=== PATIENT | male | born 1945 | race Caucasian/White ===

== ENCOUNTER → 2017-01-30 | Outpatient (CLI) | payer MEDICARE, OTHER ==
[~2017-01-30] MED LIST: AMIODARONE200 MG PO; ASPIRIN325 MG PO; ASPIRIN81 M1; BACTROBAN OINT22 GM NAS; CARVEDILOL25 MG; COREG25 MG PO; COUMADIN PO; COUMADIN3 MG PO; COUMADIN4 MG PO; DILTIAZEM240 MG; FISH OIL 10001000 MG; FUROSEMIDE20 MG PO; GEMFIBROZIL600 MG; K-DUR 20MEQ20 MEQ PO; KLOR-CON M2020 MEQ; LASIX40 MG PO; METFORMIN1000 MG; METOCLOPRAMIDE5 MG PO; Oxycodone/Apap1 TA1; PRAVACHOL40 MG PO; PRILOSEC; PRILOSEC20 M1 PO; PRINIVIL5 MG PO; SAW PALMETTO450 MG; SYNTHROID,LEVO50 MCG PO; ZAROXOLYN2.5 MG PO; ZETIA10 MG PO
[2017-01-30 10:07] LABS: BASO % 0.5 % (0.0-1.0); HEMATOCRIT 40.1 % (42.0-52.0); HEMOGLOBIN 12.2 g/dl (14.0-18.0); LYMPH # 0.7 10*3/uL (1.3-4.4); LYMPH % 17.3 % (27.0-41.0); MEAN CELL VOLUME 85.1 fl (80.0-94.0); MEAN CORPUSCULAR HGB 25.9 pg (27.0-31.0); MEAN CORPUSCULAR HGB CONC 30.4 g/dl (33.0-37.0); MEAN PLATELET VOLUME 9.9 fl (9.6-12.3); MONO # 0.3 10*3/uL (0.1-1.0); MONO % 6.9 % (3.0-9.0); NEUT % 74.1 % (47.0-73.0); PLATELET COUNT AUTOMATED 121 10*3/uL (130-400); RED BLOOD COUNT 4.71 10*6/uL (4.50-5.90); RED CELL DISTRI WIDTH 16.8 % (0-14.5)
[2017-01-30 10:30] LABS: ALBUMIN 2.6 gm/dl (3.1-4.5); MAGNESIUM 2.1 mg/dL (1.5-2.1); PHOSPHOROUS 3.2 mg/dL (2.5-4.9); POTASSIUM 3.9 mmol/L (3.5-5.1)
[2017-01-30 11:10] LABS: VITAMIN D, 25-HYDROXY 38.2 ng/mL (30-100)
[2017-01-30 14:43] LABS: BILIRUBIN NEGATIVE (NEGATIVE); BLOOD NEGATIVE (NEGATIVE); CLARITY SL CLOUDY (CLEAR); COLOR YELLOW (YELLOW); GLUCOSE NEGATIVE (NEGATIVE); KETONE NEGATIVE (NEGATIVE); LEUKO ESTERASE NEGATIVE (NEGATIVE); NITRITE NEGATIVE (NEGATIVE); PH 5.5 (5.0-9.0); PROTEIN NEGATIVE (NEGATIVE)
[2017-01-30 14:51] LABS: RBC 0-2 rbc/hpf (0-2); URINE TP/CRE RATIO 0.1 (<0.21); WBC 0-2 wbc/hpf (0-5)
[2017-01-30 14:52] LABS: BACTERIA 1+
== END | disposition home or self-care (01) ==
LOC: LAB 08:49 → CARD 09:00
PROVIDERS: Internal Medicine Interventional Cardiology; Internal Medicine Nephrology
DX: I13.0 Hypertensive heart and chronic kidney disease with heart failure and stage 1 through stage 4 chronic kidney disease, or unspecified chronic kidney disease (principal); I50.43 Acute on chronic combined systolic (congestive) and diastolic (congestive) heart failure; N18.3 Chronic kidney disease, stage 3 (moderate); I48.2 Chronic atrial fibrillation; I44.7 Left bundle-branch block, unspecified; E78.2 Mixed hyperlipidemia; R01.1 Cardiac murmur, unspecified; E55.9 Vitamin D deficiency, unspecified; I37.1 Nonrheumatic pulmonary valve insufficiency; I08.1 Rheumatic disorders of both mitral and tricuspid valves; Z95.810 Presence of automatic (implantable) cardiac defibrillator; Z79.01 Long term (current) use of anticoagulants

== ENCOUNTER → 2017-03-04 | Outpatient (CLI) | payer MEDICARE, OTHER ==
[2017-03-04 13:50] LABS: ALBUMIN 2.9 gm/dl (3.1-4.5); PHOSPHOROUS 2.8 mg/dL (2.5-4.9)
== END | disposition home or self-care (01) ==
LOC: LAB 13:04
PROVIDERS: Internal Medicine Nephrology
DX: N18.3 Chronic kidney disease, stage 3 (moderate) (principal)

== ENCOUNTER → 2017-05-28 | Outpatient (CLI) | payer MEDICARE, OTHER ==
[2017-05-28 12:20] LABS: BASO % 0.5 % (0.0-1.0); EOS # 0.1 10*3/uL (0.0-0.4); EOS % 1.6 % (1.0-4.0); HEMATOCRIT 40.1 % (42.0-52.0); HEMOGLOBIN 12.6 g/dl (14.0-18.0); LYMPH # 0.7 10*3/uL (1.3-4.4); LYMPH % 18.4 % (27.0-41.0); MEAN CELL VOLUME 86.1 fl (80.0-94.0); MEAN CORPUSCULAR HGB CONC 31.4 g/dl (33.0-37.0); MEAN PLATELET VOLUME 10.9 fl (9.6-12.3); MONO # 0.3 10*3/uL (0.1-1.0); NEUT # 2.6 10*3/uL (2.3-7.9); PLATELET COUNT AUTOMATED 113 10*3/uL (130-400); RED BLOOD COUNT 4.66 10*6/uL (4.50-5.90); RED CELL DISTRI WIDTH 16.9 % (0-14.5); WHITE BLOOD COUNT 3.6 10*3/uL (4.8-10.8)
[2017-05-28 12:42] LABS: ALBUMIN 2.9 gm/dl (3.1-4.5)
[2017-05-28 12:52] LABS: CREATININE 2.13 mg/dL (0.70-1.30); THYROID STIM HORMONE (HS) 2.49 uIU/ml (0.358-4.75); TOTAL PROTEIN 6.3 gm/dL (6.4-8.2)
[2017-05-28 13:30] LABS: FERRITIN 29.1 ng/mL (22.0-322.0); VITAMIN D, 25-HYDROXY 30.2 ng/mL (30-100)
[2017-05-28 14:31] LABS: BILIRUBIN NEGATIVE (NEGATIVE); BLOOD NEGATIVE (NEGATIVE); CLARITY SL CLOUDY (CLEAR); COLOR YELLOW (YELLOW); GLUCOSE NEGATIVE (NEGATIVE); KETONE NEGATIVE (NEGATIVE); LEUKO ESTERASE NEGATIVE (NEGATIVE); NITRITE NEGATIVE (NEGATIVE); PH 5.5 (5.0-9.0); SPECIFIC GRAVITY 1.015 (1.005-1.030); UROBILINOGEN 0.2 E.U./dl (0.2-1.0)
[2017-05-28 14:47] LABS: BACTERIA 3+
[2017-05-28 14:48] LABS: YEAST TRACE
== END | disposition home or self-care (01) ==
LOC: LAB 11:52
PROVIDERS: Family Medicine
DX: E55.9 Vitamin D deficiency, unspecified (principal); R53.83 Other fatigue; R79.89 Other specified abnormal findings of blood chemistry; Z79.899 Other long term (current) drug therapy

== ENCOUNTER → 2017-08-28 | Outpatient (CLI) | payer MEDICARE, OTHER ==
[2017-08-28 13:00] LABS: BASO % 0.5 % (0.0-1.0); EOS # 0.1 10*3/uL (0.0-0.4); HEMATOCRIT 37.6 % (42.0-52.0); HEMOGLOBIN 11.6 g/dl (14.0-18.0); LYMPH # 0.6 10*3/uL (1.3-4.4); LYMPH % 13.9 % (27.0-41.0); MEAN CORPUSCULAR HGB 26.5 pg (27.0-31.0); MEAN CORPUSCULAR HGB CONC 30.9 g/dl (33.0-37.0); MEAN PLATELET VOLUME 10.3 fl (9.6-12.3); MONO # 0.3 10*3/uL (0.1-1.0); MONO % 7.1 % (3.0-9.0); NEUT % 76.2 % (47.0-73.0); PLATELET COUNT AUTOMATED 113 10*3/uL (130-400); RED BLOOD COUNT 4.37 10*6/uL (4.50-5.90); RED CELL DISTRI WIDTH 16.8 % (0-14.5)
[2017-08-28 13:17] LABS: ALBUMIN 2.8 gm/dl (3.1-4.5); CREATININE 2.03 mg/dL (0.70-1.30); PHOSPHOROUS 3.5 mg/dL (2.5-4.9); POTASSIUM 4.2 mmol/L (3.5-5.1)
[2017-08-28 14:18] LABS: VITAMIN D, 25-HYDROXY 21.7 ng/mL (30-100)
[2017-08-28 14:19] LABS: PTH INTACT 159.4 pg/mL (14.0-72.0)
[2017-08-28 15:05] LABS: BILIRUBIN NEGATIVE (NEGATIVE); BLOOD 1+ (NEGATIVE); CLARITY CLEAR (CLEAR); COLOR YELLOW (YELLOW); GLUCOSE NEGATIVE (NEGATIVE); KETONE NEGATIVE (NEGATIVE); LEUKO ESTERASE NEGATIVE (NEGATIVE); NITRITE NEGATIVE (NEGATIVE); UROBILINOGEN 0.2 E.U./dl (0.2-1.0)
[2017-08-28 15:13] LABS: HYALINE CAST 0-2
[2017-08-28 15:14] LABS: BACTERIA TRACE; URINE CREATININE RANDOM 30.8 mg/dL; WBC 0-2 wbc/hpf (0-5)
== END | disposition home or self-care (01) ==
LOC: LAB 12:19
PROVIDERS: Internal Medicine Nephrology
DX: N18.3 Chronic kidney disease, stage 3 (moderate) (principal); N25.81 Secondary hyperparathyroidism of renal origin; E55.9 Vitamin D deficiency, unspecified

== ENCOUNTER 2017-10-20 12:00 | Inpatient (IN) | payer MEDICARE, OTHER ==
[~2017-10-20] VITALS: Ht 185.4 cm; Wt 139.5 kg
--- NOTE | ~2017-10-20 | CON ---
[place], [place] REPORT OF CONSULTATION NAME: TORO MUNIZ [facility] #: [id number] UNIT #: [id number] ROOM: 519 DOCTOR: NIDA YI MD BIRTHDATE: [birth year] DOS: 10/21/2017 REASON FOR CONSULTATION: The patient was seen today, 10/21/2017 at his bedside for evaluation of peripheral edema and a history of dilated cardiomyopathy. CHIEF COMPLAINT: Leg swelling and weeping. HISTORY OF PRESENT ILLNESS: The patient is a 72-year-old man who has a long history of nonischemic cardiomyopathy. He has been followed by [facility] out of [facility] and specifically sees Dr. Perez twice a year for his heart failure. Review of available records indicates that he has had catheterization in the past, the most recent one I have records on is from March 2008, at which time, he was felt to have minimal coronary artery disease with an ejection fraction of 45%. He was managed medically. He also has a history of recurrent ventricular tachycardia, for which an ICD was placed. He did have ventricular tachycardia storm with an ICD discharge in 2010. He was placed on amiodarone, but this was subsequently stopped. He denies any discharge from his ICD or palpitations recently. He has had episodes of peripheral edema. He states that he did have cataracts removed early in September. After that he sat with his legs down and the legs became much more swollen. He did develop blisters which broke and his legs developed significant erythema and drainage. He was directed to come to the hospital and has been admitted with heart failure and cellulitis. PAST MEDICAL HISTORY: Includes 1. Permanent atrial fibrillation. 2. Non-insulin dependent diabetes mellitus. 3. Chronic renal insufficiency. 4. Venous stasis ulcerations. 5. Bilateral lower extremity edema with blisters and oozing. 6. History of nonischemic cardiomyopathy. Catheterization in March 2008 showed minimal coronary artery disease with an ejection fraction of 45%. The patient has been treated medically. 7. Recurrent ventricular tachycardia, prompting ICD placement. The device did discharge in 2010. The patient was placed on amiodarone and maintained on amiodarone for a few years before it was stopped. 8. History of rectal cancer, treated with chemotherapy and radiation therapy. MEDICATIONS: Prior to admission included aspirin 325 mg per day, carvedilol 25 mg b.i.d., vitamin D 50,000 units weekly, furosemide 40 mg daily, levothyroxine 50 mcg daily, metoclopramide 5 mg b.i.d., omeprazole 20 mg daily, potassium 20 mEq daily, pravastatin 40 mg at bedtime, warfarin 5 mg alternating with 5.5 mg daily to maintain an INR between 2 and 3. ALLERGIES: The patient lists no known drug allergies. FAMILY HISTORY: The patient's mother of heart disease. REVIEW OF SYSTEMS: The patient denies diplopia or loss of vision. He denies [place], [place] REPORT OF CONSULTATION NAME: TORO MUNIZ UNIT #: [id number] ROOM: [facility] DOCTOR: NIDA YI MD BIRTHDATE: [birth year] lightheadedness or syncope. He does have dyspnea with minor exertion. He denies any recent weight change, but he does note that his abdomen is getting more swollen. He denies nausea or vomiting. He does have diarrhea. He denies fevers, chills or sweats. He is not sure if he might have gained weight. He denies any new skin rashes except for the ulcerations on his legs. He denies blood in his stools or urine. The remainder of the review of systems is negative except as noted above. SOCIAL HISTORY: The patient does not smoke or consume alcohol at this time. He was a pipe smoker in the past. PHYSICAL EXAMINATION: GENERAL: The patient is an obese white male who is awake, alert and oriented. VITAL SIGNS: Pulse is 100 and irregularly irregular, blood pressure is 104/60. He has a temperature of 99.4. He weighs 139.5 kilograms with a body mass index of 40.6. HEENT: Normocephalic, atraumatic. Extraocular muscles are intact. Sclerae are clear. Pupils are equal, round and react to light. The oral mucosa is moist. Tongue is midline. NECK: Supple. He does have jugular distention skilled nursing up the neck when sitting in a 45 degree angle. He does have hepatojugular reflux. Carotids are full without bruits. There are no neck or supraclavicular masses and no thyromegaly. RESPIRATIONS: Unlabored at rest. He does have decreased breath sounds with dullness at the bases. He has mild per presacral edema. HEART: Has an irregularly irregular rhythm. No murmurs or gallops are present. The PMI could not be felt. He has no precordial heave, lift or thrill. ABDOMEN: Obese and firm. I could not tell if there was a fluid wave. Bowel sounds are active. There is no obvious tenderness. EXTREMITIES: Do show 3-4+ edema to the knees. He does have multiple ulcerations on his legs bilaterally with evidence of cellulitis in and around the ulcerations. LABORATORY DATA: I reviewed the chest x-ray, which showed cardiomegaly with pulmonary vascular congestion. An AICD is in place. Hemoglobin is 11.1, hematocrit 34.6, there are 9900 white cells and 149,000 platelets present. Sodium is 138, potassium 3.3, chloride 106, CO2 of 20, BUN 29, creatinine 2.22. IMPRESSION: 1. Acute exacerbation of chronic combined systolic and diastolic heart failure. 2. Massive fluid overload. The patient does have neck vein distention, possible ascites, pleural effusions and lower extremity edema. 3. History of nonischemic cardiomyopathy. 4. Permanent atrial fibrillation. 5. Non-insulin dependent diabetes mellitus. 6. Chronic renal insufficiency. 7. History of recurrent ventricular tachycardia. The patient does have an ICD in place without any recent discharge. [place], [place] REPORT OF CONSULTATION NAME: TORO MUNIZ UNIT #: [id number] ROOM: [facility] DOCTOR: NIDA YI MD BIRTHDATE: [birth year] PLAN: The patient is markedly fluid overloaded. This will need to be treated and I did therefore switch him from p.o. to IV furosemide. 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 I will be getting an echocardiogram to reassess left ventricular function, but I think at this point diuretics are the most appropriate therapy. I did add nitrates to his regimen to act as an unloading therapy. We will continue to observe the patient as he diureses. Further recommendations will follow his echo review. I thank the hospitalist physicians for asking our advice regarding the patient's care. NIDA YI MD CM:CONSTR:REPORT OF CONSULTATION 1505 10/21/17 2130 interface
[~2017-10-20 12:00] MED LIST changes: -K-DUR 20MEQ20 MEQ PO; +POTASSIUM CHLO20 MEQ PO
[2017-10-20 12:17] VITALS: BP 100/58
[2017-10-20 12:44] VITALS: BP 100/53
[2017-10-20 13:27] LABS: BASO % 0.2 % (0.0-1.0); EOS % 0.2 % (1.0-4.0); HEMATOCRIT 38.1 % (42.0-52.0); HEMOGLOBIN 11.6 g/dl (14.0-18.0); LYMPH # 0.6 10*3/uL (1.3-4.4); LYMPH % 5.3 % (27.0-41.0); MEAN CELL VOLUME 84.9 fl (80.0-94.0); MEAN CORPUSCULAR HGB 25.8 pg (27.0-31.0); MEAN CORPUSCULAR HGB CONC 30.4 g/dl (33.0-37.0); MEAN PLATELET VOLUME 10.5 fl (9.6-12.3); MONO # 0.6 10*3/uL (0.1-1.0); MONO % 5.6 % (3.0-9.0); NEUT # 9.8 10*3/uL (2.3-7.9); NEUT % 88.2 % (47.0-73.0); PLATELET COUNT AUTOMATED 148 10*3/uL (130-400); RED BLOOD COUNT 4.49 10*6/uL (4.50-5.90); RED CELL DISTRI WIDTH 16.5 % (0-14.5); WHITE BLOOD COUNT 11.1 10*3/uL (4.8-10.8)
[2017-10-20 13:31] VITALS: BP 103/50
[2017-10-20 13:42] LABS: ALBUMIN 2.2 gm/dl (3.1-4.5); CREATININE 2.37 mg/dL (0.70-1.30); POTASSIUM 3.7 mmol/L (3.5-5.1); TOTAL PROTEIN 5.7 gm/dL (6.4-8.2)
[2017-10-20] MEDS ORDERED: COUMADIN5 M2 PO (13:50)
[2017-10-20 14:54] VITALS: BP 96/50
[2017-10-20 16:01] VITALS: BP 118/69
[2017-10-20] MEDS ORDERED: COUMADIN0.5 MG PO (16:41)
[2017-10-20] MEDS ORDERED: VITAMIN D50000 UNIT PO (16:43)
[2017-10-20 20:54] LABS: BILIRUBIN NEGATIVE (NEGATIVE); BLOOD TRACE-INTACT (NEGATIVE); CLARITY CLEAR (CLEAR); COLOR YELLOW (YELLOW); GLUCOSE NEGATIVE (NEGATIVE); KETONE NEGATIVE (NEGATIVE); LEUKO ESTERASE NEGATIVE (NEGATIVE); NITRITE NEGATIVE (NEGATIVE); UROBILINOGEN 0.2 E.U./dl (0.2-1.0)
[2017-10-20 21:00] VITALS: BP 112/70
[2017-10-20 21:00] LABS: BACTERIA 2+; RBC 0-2 rbc/hpf (0-2)
[2017-10-21 01:12] VITALS: BP 102/50
[2017-10-21 06:55] LABS: BASO % 0.2 % (0.0-1.0); EOS % 0.4 % (1.0-4.0); HEMATOCRIT 34.6 % (42.0-52.0); HEMOGLOBIN 11.1 g/dl (14.0-18.0); LYMPH # 0.6 10*3/uL (1.3-4.4); LYMPH % 5.7 % (27.0-41.0); MEAN CELL VOLUME 83.4 fl (80.0-94.0); MEAN CORPUSCULAR HGB 26.7 pg (27.0-31.0); MEAN CORPUSCULAR HGB CONC 32.1 g/dl (33.0-37.0); MONO # 0.5 10*3/uL (0.1-1.0); MONO % 5.5 % (3.0-9.0); NEUT # 8.6 10*3/uL (2.3-7.9); NEUT % 87.5 % (47.0-73.0); PLATELET COUNT AUTOMATED 149 10*3/uL (130-400); RED BLOOD COUNT 4.15 10*6/uL (4.50-5.90); RED CELL DISTRI WIDTH 16.5 % (0-14.5); WHITE BLOOD COUNT 9.9 10*3/uL (4.8-10.8)
[2017-10-21 07:07] LABS: INTERNATIONAL NORM RATIO 4.7 (2.0-3.5)
[2017-10-21 07:23] LABS: ALBUMIN 2.1 gm/dl (3.1-4.5); FREE T4 1.52 ng/dl (0.76-1.46); POTASSIUM 3.3 mmol/L (3.5-5.1); TOTAL PROTEIN 5.4 gm/dL (6.4-8.2)
[2017-10-21 07:28] LABS: CREATININE 2.22 mg/dL (0.70-1.30); PHOSPHOROUS 2.5 mg/dL (2.5-4.9); THYROID STIM HORMONE (HS) 1.6 uIU/ml (0.358-4.75)
[2017-10-21 08:00] VITALS: BP 104/60
[2017-10-21 09:58] LABS: VITAMIN D, 25-HYDROXY 24.8 ng/mL (30-100)
[2017-10-21 15:33] LABS: HEMATOCRIT 39.5 % (42.0-52.0); HEMOGLOBIN 12.4 g/dl (14.0-18.0); MEAN CELL VOLUME 83.7 fl (80.0-94.0); MEAN CORPUSCULAR HGB 26.3 pg (27.0-31.0); MEAN CORPUSCULAR HGB CONC 31.4 g/dl (33.0-37.0); PLATELET COUNT AUTOMATED 159 10*3/uL (130-400); RED BLOOD COUNT 4.72 10*6/uL (4.50-5.90); RED CELL DISTRI WIDTH 16.5 % (0-14.5); WHITE BLOOD COUNT 13.1 10*3/uL (4.8-10.8)
[2017-10-21 16:00] VITALS: BP 116/54
[2017-10-21 16:19] LABS: BASOPHILS 1 % (0-1); BURR CELLS FEW; TOTAL CELLS COUNTED 100 #CELLS
[2017-10-21 16:20] LABS: PLATELET SUFFICIENCY NORMAL (NORMAL); POLYCHROMASIA SLIGHT
[2017-10-21 20:00] VITALS: BP 97/60
[2017-10-21 22:13] LABS: POTASSIUM 3.6 mmol/L (3.5-5.1)
[2017-10-21 22:18] LABS: PHOSPHOROUS 2.9 mg/dL (2.5-4.9)
[2017-10-22 01:04] VITALS: BP 120/58
[2017-10-22 06:39] LABS: BASO % 0.1 % (0.0-1.0); EOS % 0.1 % (1.0-4.0); HEMATOCRIT 36.8 % (42.0-52.0); HEMOGLOBIN 11.7 g/dl (14.0-18.0); LYMPH # 0.7 10*3/uL (1.3-4.4); LYMPH % 4.6 % (27.0-41.0); MEAN CELL VOLUME 82.1 fl (80.0-94.0); MEAN CORPUSCULAR HGB 26.1 pg (27.0-31.0); MEAN CORPUSCULAR HGB CONC 31.8 g/dl (33.0-37.0); MEAN PLATELET VOLUME 10.4 fl (9.6-12.3); MONO # 0.7 10*3/uL (0.1-1.0); MONO % 5.1 % (3.0-9.0); NEUT # 12.8 10*3/uL (2.3-7.9); NEUT % 89.4 % (47.0-73.0); PLATELET COUNT AUTOMATED 170 10*3/uL (130-400); RED BLOOD COUNT 4.48 10*6/uL (4.50-5.90); RED CELL DISTRI WIDTH 16.7 % (0-14.5); WHITE BLOOD COUNT 14.3 10*3/uL (4.8-10.8)
[2017-10-22 06:58] LABS: ALBUMIN 1.9 gm/dl (3.1-4.5); CREATININE 2.76 mg/dL (0.70-1.30); PHOSPHOROUS 2.9 mg/dL (2.5-4.9); POTASSIUM 3.6 mmol/L (3.5-5.1)
[2017-10-22 06:59] LABS: TOTAL PROTEIN 5.3 gm/dL (6.4-8.2)
[2017-10-22 08:00] VITALS: BP 91/54
[2017-10-22 12:00] VITALS: BP 76/49
[2017-10-22 20:00] VITALS: BP 94/57
[2017-10-23] VITALS: BP 78/58
[2017-10-23 07:18] VITALS: BP 81/44
[2017-10-23 08:02] LABS: CREATININE 4.36 mg/dL (0.70-1.30); INTERNATIONAL NORM RATIO 3.2 (2.0-3.5); PHOSPHOROUS 4.2 mg/dL (2.5-4.9); POTASSIUM 4.3 mmol/L (3.5-5.1)
[2017-10-23 12:05] VITALS: BP 76/56
[2017-10-23 16:10] VITALS: BP 82/56
[2017-10-23 20:00] VITALS: BP 71/51
[2017-10-24] VITALS: BP 89/65
[2017-10-24 06:44] LABS: ALBUMIN 2.3 gm/dl (3.1-4.5); CREATININE 5.92 mg/dL (0.70-1.30); PHOSPHOROUS 5.6 mg/dL (2.5-4.9); POTASSIUM 5.1 mmol/L (3.5-5.1)
[2017-10-24 07:55] VITALS: BP 89/65
[2017-10-24 11:56] VITALS: BP 56/34
== END 2017-10-24 13:58 | disposition expired | DRG 291 ==
LOC: ED 12:00 → EDHOLD 15:12 → 5E 15:12
PROVIDERS: Emergency Medicine; Hospitalist; Internal Medicine; Internal Medicine Nephrology; Registered Nurse
DX: I13.0 Hypertensive heart and chronic kidney disease with heart failure and stage 1 through stage 4 chronic kidney disease, or unspecified chronic kidney disease (principal); I50.23 Acute on chronic systolic (congestive) heart failure; D68.69 Other thrombophilia; E11.42 Type 2 diabetes mellitus with diabetic polyneuropathy; E11.22 Type 2 diabetes mellitus with diabetic chronic kidney disease; E11.51 Type 2 diabetes mellitus with diabetic peripheral angiopathy without gangrene; N18.4 Chronic kidney disease, stage 4 (severe); L03.115 Cellulitis of right lower limb; L03.116 Cellulitis of left lower limb; Z68.41 Body mass index [BMI] 40.0-44.9, adult; L97.829 Non-pressure chronic ulcer of other part of left lower leg with unspecified severity; L97.819 Non-pressure chronic ulcer of other part of right lower leg with unspecified severity; E66.01 Morbid (severe) obesity due to excess calories; I42.8 Other cardiomyopathies; I48.2 Chronic atrial fibrillation; D64.9 Anemia, unspecified; K21.9 Gastro-esophageal reflux disease without esophagitis; E66.9 Obesity, unspecified; G47.33 Obstructive sleep apnea (adult) (pediatric); E78.5 Hyperlipidemia, unspecified; D72.829 Elevated white blood cell count, unspecified; Z66 Do not resuscitate; Z51.5 Encounter for palliative care; B96.89 Other specified bacterial agents as the cause of diseases classified elsewhere; Z79.82 Long term (current) use of aspirin; Z79.01 Long term (current) use of anticoagulants; Z79.899 Other long term (current) drug therapy; Z68.30 Body mass index [BMI] 30.0-30.9, adult; Z95.810 Presence of automatic (implantable) cardiac defibrillator; N20.0 Calculus of kidney; E11.622 Type 2 diabetes mellitus with other skin ulcer; L89.892 Pressure ulcer of other site, stage 2; I83.018 Varicose veins of right lower extremity with ulcer other part of lower leg; I83.028 Varicose veins of left lower extremity with ulcer other part of lower leg